=== PATIENT | male | born 1995 | race Caucasian/White ===

== ENCOUNTER 2016-06-28 03:32 | Emergency (ER) | payer OTHER ==
[2016-06-28 04:07] LABS: MEAN CORPUSCULAR HGB CONC 34.6 g/dl (32.0-36.5); MEAN CORPUSCULAR VOLUME 92.3 fl (80.0-96.0)
[2016-06-28 04:37] LABS: ALBUMIN 4.9 GM/DL (3.2-5.2); ALBUMIN/GLOBULIN RATIO 1.53 (1.00-1.93); ALKALINE PHOSPHATASE 84 U/L (45-117); ALT/SGPT 71 U/L (12-78); ANION GAP 10 MEQ/L (8-16); AST/SGOT 32 U/L (15-37); BILIRUBIN,DIRECT 0.2 MG/DL (0.0-0.2); BILIRUBIN,TOTAL 0.7 MG/DL (0.2-1.0); BLOOD UREA NITROGEN 12 MG/DL (7-18); CALCIUM LEVEL 9.5 MG/DL (8.5-10.1); CARBON DIOXIDE LEVEL 29 MEQ/L (21-32); CHLORIDE LEVEL 106 MEQ/L (98-107); CREATININE FOR GFR 1.04 MG/DL (0.70-1.30); GLOMERULAR FILTRATION RATE > 60.0 (>60); GLUCOSE, FASTING 84 MG/DL (70-105); POTASSIUM SERUM 4.3 MEQ/L (3.5-5.1); SODIUM LEVEL 145 MEQ/L (136-145); TOTAL PROTEIN 8.1 GM/DL (6.4-8.2)
[2016-06-28 04:56] LABS: AMPHETAMINES LEVEL URINE NEGATIVE (NEGATIVE); BENZODIAZEPINES URINE NEGATIVE (NEGATIVE); COCAINE METABOLITE URINE NEGATIVE (NEGATIVE); CONTROL LINE INT CTR LINE PRESENT; METHADONE URINE NEGATIVE (NEGATIVE); OPIATES URINE NEGATIVE (NEGATIVE); TRICYCLIC ANTIDEPRESS URINE NEGATIVE (NEGATIVE)
[2016-06-28] MEDS ORDERED: DERMABOND TOPICAL SKIN ADHESIVE As Ordered ONE (05:21)
--- NOTE | 2016-06-28 19:21 | ECGEPIP ---
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
--- NOTE | 2016-06-28 21:37 | EDDOCDS ---
Physician Documentation [facility] Name: Willian Laureano Age: 21 yrs Sex: Male : 1995 Arrival Date: 06/28/2016 Time: 03:32 Bed OBSERVATION Private MD: Padmini Alcazar [facility] Disposition: 06/28/16 18:05 Transfer ordered to [facility]. Diagnosis is Suicidal ideations - with laceration of left wrist. - Reason for transfer: Higher level of care. - Accepting physician is dr grimm. - Condition is Stable. - Problem is new. - Symptoms are unchanged. Historical: - Allergies: No known drug Allergies; - Home Meds: 1. none - PMHx: none; - PSHx: none; - Social history: Smoking status: Patient states former smoker of tobacco. Patient uses alcohol only on a social basis. admits to "couple of beers" a day. Patient/guardian denies using street drugs, No barriers to communication noted, The patient speaks fluent [place], Speaks appropriately for age. - Family history: Not pertinent. - : The pt / caregiver states he / she is not on anticoagulants. Home medication list is obtained from the patient. - Exposure Risk Screening:: None identified. Vital Signs: 06/28 03:41 BP 129 / 64; Pulse 82; Resp 18; Temp 98.1(T); Pulse Ox 99% on R/A; Pain 0/10; cp1 06:33 BP 119 / 91; Pulse 72; Resp 16; Temp 97.9(T); Pulse Ox 98% ; Pain 0/10; cp1 16:44 BP 140 / 57; Pulse 80; Resp 18; Temp 97.0(T); Pulse Ox 98% on R/A; Pain 0/10; dsf MDM: 03:36 Consult PFS/PSA/Agronomy Research Manager ordered. jun 03:36 Consult PFS/PSA/Agronomy Research Manager: Patient's case requires discussion with on-call nadia Psychiatrist ordered. 03:36 PSA/PFS to call Nursing Kiln Car Repairer, to enter patient data on [place] Safe Act if patient nadia involuntarily admitted or transferred for SI or HI ordered. 03:36 Confirm accurate psychiatric medication list and times of last dosage ordered. jun 03:36 Detain Pt Until Medically/PFS Cleared ordered. jun 03:37 Acetaminophen Level Ordered. EDMS 03:37 Basic Metabolic Profile Ordered. EDMS 03:37 Complete Blood Count Ordered. EDMS 03:37 Drug Eval Toxicology ED Only Ordered. EDMS 03:37 Ethyl Alcohol (ethanol) Ordered. EDMS 03:37 Liver Profile Ordered. EDMS 03:37 Salicylate Level Ordered. EDMS 03:37 Thyroid Stimulating Hormone Ordered. EDMS 04:28 Dermabond to bedside ordered. mm11 04:28 Complete Blood Count Reviewed. mm11 05:09 Financial registration complete. hs2 05:16 REGULAR DIET PLASTIC ALVAREZ+DIET ordered. EDMS 05:27 Acetaminophen Level Reviewed. mm11 05:27 Ethyl Alcohol (ethanol) Reviewed. mm11 05:27 Salicylate Level Reviewed. mm11 05:27 Thyroid Stimulating Hormone Reviewed. mm11 05:27 Basic Metabolic Profile Reviewed. mm11 05:27 Drug Eval Toxicology ED Only Reviewed. mm11 05:27 Liver Profile Reviewed. mm11 05:49 [place] was [place] into [employer] and attached to record. hs2 07:24 Consult PFS/PSA/Agronomy Research Manager complete. rb 07:25 Consult PFS/PSA/Agronomy Research Manager: Patient's case requires discussion with on-call rb Psychiatrist complete. 07:25 PSA/PFS to call Nursing Kiln Car Repairer, to enter patient data [place] Safe [place] if patient rb involuntarily admitted or transferred for SI or HI complete. 08:21 ED course: pt signed out to [place]. pending psych disposition. pt with no complaints. mlg. ml 08:33 ED course: pt signed out to [place]. pending psych disposition. pt with no complaints. mlg. ml 11:18 REGULAR DIET PLASTIC ALVAREZ+DIET ordered. EDMS 16:38 ECG WITH READING ER PHYS+CARDIAG ordered. EDMS 16:42 REGULAR DIET PLASTIC ALVAREZ+DIET ordered. EDMS 17:10 ED course: pt resting comfortably. pending psych disposition. pt with no complaints. ml mlg. 17:12 ED course: pt with no complaints. pending psych disposition. pt with no complaints. mlg.ml 17:52 [facility] Legal paperwork was scanned into [employer] and attached to record. rb 18:06 [facility] Legal paperwork was scanned into [employer] and attached to record. rb 21:35 T-Sheet-- Draft Copy was scanned into [employer] and attached to record. klr Signatures: Dispatcher [employer] EDMS Benedicto Wolfe MD MD ml Mary Mcrae, RN RN kmg1 Juju Zepeda, RN RN nadia Gonzalez, Tri, PSA PSA Delroy Sirvastava, DO mm11 Maryjane KamaraRN RN Yareli Galvan,JOB BOSS JOB BOSS ka4 Irina Carrasco, Reg Reg hs2 Aide Garza klcase The chart was reviewed and I authenticate all verbal orders and agree with the evaluation and treatment provided.Attachments: 05:49 [facility] Payment Agreement hs2 21:35 T-Sheet-- Draft Copy klr MTDD
--- NOTE | 2016-06-28 21:37 | EDDOCDS ---
Nurse's Notes [facility] Name: Ave Benton Age: 21 yrs Sex: Male : 1995 Arrival Date: 06/28/2016 Time: 03:32 Bed OBSERVATION Private MD: Padmini Alcazar [facility] Diagnosis: Suicidal ideations-with laceration of left wrist Presentation: 06/28 03:38 Presenting complaint: EMS states: patient brought in after cutting wrists with a pair kmg1 of scissors. Mental Health Triage Level: Level 2: The patient displays active suicidal ideations. Mental Health Triage Level: Level 2: The patient displays active suicidal ideations. Suicide/Homicide risk assessment- The patient admits to and/or has been reported to be having suicidal ideations. 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 Transition of care: patient was not received from another setting of care. 03:38 Acuity: TRAE Level 3 kmg1 03:38 Method Of Arrival: Ambulance km 03:51 Presenting complaint: Patient states: Has been seeing a therapist for a couple of kmg1 weeks. They have brought some personal issues up in discussions. Patient reports no particula reason for attempt other than reflecting on those issues. Patient called the suicide hotline after cutting wrists. He reports that after the wounds stopped bleeding he realized he was not going to so he went to bed and was awakened by the arrival of his NCO and then ambulance and police. Adult Sepsis Screening: The patient does not have new or worsening altered mentation. Patient's respiratory rate is less than 22. Systolic blood pressure is greater than 100. Patient has a qSOFA score of 0- Negative Sepsis Screen. Triage Assessment: 03:55 General: Appears in no apparent distress, comfortable, Behavior is appropriate for age, kmg1 cooperative, flat. Pain: Denies pain. The patient is triaged at the bedside. See Assessment in Nurses Notes section of ED record. Neurological: Level of Consciousness is awake, alert. EENT: No deficits noted. Cardiovascular: No deficits noted. Respiratory: No deficits noted. Airway is patent Respiratory effort is even, unlabored, Respiratory pattern is regular, symmetrical. GI: Abdomen is flat, non- distended. Derm: Skin is pink, warm & dry. Musculoskeletal: No deficits noted. Injury Description: Laceration sustained to palmar aspect of right wrist and palmar aspect of left wrist is Left wrist with 2 linear lacerations approx 3 inches long. 4 shallow abrasions on right wrist. 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 dsf Historical: - Allergies: No known drug Allergies; - Home Meds: 1. none - PMHx: none; - PSHx: none; - Social history: Smoking status: Patient states former smoker of tobacco. Patient uses alcohol only on a social basis. admits to "couple of beers" a day. Patient/guardian denies using street drugs, No barriers to communication noted, The patient speaks fluent Sammarinese, Speaks appropriately for age. - Family history: Not pertinent. - : The pt / caregiver states he / she is not on anticoagulants. Home medication list is obtained from the patient. - Exposure Risk Screening:: None identified. Screenin:14 Screening information is obtained from the patient. Fall risk: No risks identified. dsf Assistance ADL's: requires no assistance with activities of daily living. Abuse/DV Screen: The patient / caregiver reports he/she is: not in a situation that causes fear, pain or injury. Nutritional screening: No deficits noted. Advance Directives: Currently, there is no health care proxy. home support is adequate. Assessment: 04:10 General: Appears in no apparent distress, comfortable, Behavior is appropriate for age, cp1 cooperative. Pain: Denies pain. Respiratory: Respiratory effort is even, unlabored, Respiratory pattern is regular, symmetrical. 06:33 General: Appears in no apparent distress, to be sleeping. Behavior is appropriate for cp1 age, cooperative. Pain: Denies pain. Respiratory: No deficits noted. Respiratory effort is even, unlabored, Respiratory pattern is regular, symmetrical. 08:20 General: Appears in no apparent distress, comfortable, Behavior is cooperative. jc4 General: Breakfast tray has been delivered. Pt has consumed 100% of meal. Declines any additional offering of fluids or foods. Security observation continuing. Pain: Denies pain. Neurological: Level of Consciousness is awake, alert, Oriented to person, place, time. Respiratory: Airway is patent Respiratory effort is even, unlabored, Respiratory pattern is regular, symmetrical. Derm: Skin is pink, warm & dry. Injury Description: Laceration sustained to palmar aspect of right wrist and palmar aspect of left wrist is Dermabond in place to left inner wrist laceration. 09:20 Adult Sepsis Screening: The patient does not have new or worsening altered mentation. dsf Patient's respiratory rate is less than 22. Systolic blood pressure is greater than 100. Patient has a qSOFA score of 0- Negative Sepsis Screen. General: Appears in no apparent distress, to be sleeping. Respiratory: Airway is patent Respiratory effort is even, unlabored, Respiratory pattern is regular, symmetrical. Derm: Skin is pink, warm & dry. 10:20 General: Appears in no apparent distress, to be sleeping. Respiratory: Airway is patent dsf Respiratory effort is even, unlabored, Respiratory pattern is regular, symmetrical. Derm: Skin is pink, warm & dry. 11:18 General: Appears in no apparent distress, to be sleeping. Respiratory: Airway is patent dsf Respiratory effort is even, unlabored, Respiratory pattern is regular, symmetrical. Derm: Skin is pink, warm & dry. 12:05 Adult Sepsis Screening: The patient does not have new or worsening altered mentation. dsf Patient's respiratory rate is less than 22. Systolic blood pressure is greater than 100. Patient has a qSOFA score of 0- Negative Sepsis Screen. General: Appears in no apparent distress, comfortable, Behavior is appropriate for age, cooperative. Neurological: Level of Consciousness is awake, alert. Cardiovascular: Capillary refill < 3 seconds. Respiratory: Airway is patent Respiratory effort is even, unlabored, Respiratory pattern is regular, symmetrical. Derm: Skin is pink, warm & dry. 13:17 General: Appears in no apparent distress, comfortable, Behavior is appropriate for age, dsf cooperative. Pain: Denies pain. Neurological: Level of Consciousness is awake, alert, Oriented to person, place, time. Cardiovascular: Capillary refill < 3 seconds Heart tones S1 S2 present. Respiratory: Airway is patent Respiratory effort is even, unlabored, Respiratory pattern is regular, symmetrical, Breath sounds are clear bilaterally. GI: Abdomen is non- distended Bowel sounds present X 4 quads. Abd is soft and non tender X 4 quads. Derm: Skin is pink, warm & dry. 13:17 General: pt ate 100% of lunch tray . dsf 14:19 General: Appears to be sleeping. Respiratory: Airway is patent Respiratory effort is dsf even, unlabored, Respiratory pattern is regular, symmetrical. Derm: Skin is pink, warm & dry. 15:22 General: Appears to be sleeping. Respiratory: Airway is patent Respiratory effort is dsf even, unlabored, Respiratory pattern is regular, symmetrical. Derm: Skin is pink, warm & dry. 16:22 Adult Sepsis Screening: The patient does not have new or worsening altered mentation. dsf Patient's respiratory rate is less than 22. Systolic blood pressure is greater than 100. Patient has a qSOFA score of 0- Negative Sepsis Screen. General: Appears in no apparent distress, comfortable, Behavior is appropriate for age, cooperative. Pain: Denies pain. Neurological: Level of Consciousness is awake, alert, Oriented to person, place, time. Cardiovascular: Capillary refill < 3 seconds. Respiratory: Airway is patent Respiratory effort is even, unlabored, Respiratory pattern is regular, symmetrical. Derm: Skin is pink, warm & dry. 17:22 General: Appears in no apparent distress, reading a book . Neurological: Level of dsf Consciousness is awake, alert. Respiratory: Airway is patent Respiratory effort is even, unlabored, Respiratory pattern is regular, symmetrical. Derm: Skin is pink, warm & dry. 18:08 General: Appears in no apparent distress, Behavior is appropriate for age, cooperative. dsf Pain: Denies pain. Neurological: Level of Consciousness is awake, alert. Cardiovascular: No deficits noted. Respiratory: No deficits noted. GI: No deficits noted. Derm: Skin is pink, warm & dry. 19:25 General: Appears in no apparent distress, comfortable, to be sleeping. Behavior is ka4 appropriate for age, cooperative, quiet. Respiratory: Airway is patent Respiratory effort is even, unlabored, Respiratory pattern is regular, symmetrical. Derm: Skin is pink, warm & dry. 21:04 General: Appears in no apparent distress. Neurological: Level of Consciousness is mgs awake, alert, Oriented to. Cardiovascular: Capillary refill < 3 seconds. Respiratory: Airway is patent Respiratory effort is even, unlabored, Respiratory pattern is regular, symmetrical. Mental Health Eval: 06:53 Mental health consult is initiated at 06:30. Status: The patient is a jl dependent. [facility] Behavioral Health: The patient is not an established patient of [facility] Behavioral Health. Referral Information: Evaluation referral is generated by [facility], accompanied by MPs units who arrested him under 9.41. The patient was referred for evaluation because he phoned a suicide hotline & was then found in his barracks room with several self-inflicted wrist lacerations, one of which required repair in ED. Subjective: The patients chief complaint is "I tried to commit suicide, basically". Delusions are denied. Patient's mood is depressed. Hallucinations are denied. Patient is a fairly vague historian, although admits that raciel's events were with suicidal intent. He reports feeling depressed "For a while now", although also admits to a h/o depression for much of his life. He denies having any obvious stressors, or triggers that precipitated raciel's attempt. 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 He denies having any deployment hx or impending deployments. He admits to drinking "A couple of beers", however denies any habitual or problematic drinking. He reports being sent to recently by his leadership for some "anger problems". While clearly stating that he cut himself with suicidal intent earlier, he denies active suicidal plan or intentions now. His chain of command that is here acting as his escort reports that patient has been seeing [facility] for about a month & was sent there due to patient being under significant stress for some time at work. This was described as, "Lots of work and not much rest". Mental Health history: depression, suicide attempt by cutting, at age 15 Mental Health Admissions: None. Current Outpatient Mental Health Services: Therapist / Agency: [facility]. Current living environment is The patient [facility]. Patient presents to Emergency Department with the following symptoms within the past 2 weeks: anger, depressed mood, poor impulse control, relational problem, suicidal ideation with attempt/gesture by cutting. Substance abuse: Pt denies. Mental status exam: Patients appearance is appropriate, Patient's behavior is cooperative, Speech is unspontaneous Affect is restricted. Mood is depressed. Hallucinations are denied. Appetite is normal. Memory is good. Energy level is normal. Content of thought is normal. Thought process is intact. Cognitive level is oriented to person, place, time and situation Patient's insight is poor. Judgement is poor. Rapport with interviewer is good. Suicidal Ideation is denied. Homicidal ideation is denied. Disposition: Medically cleared for disposition by Delroy Holden DO. 07:12 [facility] Admission Criteria: The patient has had a suicide attempt in the recent past. The jl patient requires continuous observation and/or control to protect self, others or property. The patient's care requires a multi-modal treatment plan under close supervision and coordination due to the complexity and severity of the patient's symptoms. Legal Status: Patient's legal status will be [facility] admission: . [place] Safe Act: [place] Safe Act is applicable to this patient. The patient poses a risk to self or other and the Nursing Community Service Aide has been notified. He/She will enter the patient's data. DSM-V Differential Diagnosis: Unspecified Depressive Disorder (F32.9). Vital Signs: 03:41 BP 129 / 64; Pulse 82; Resp 18; Temp 98.1(T); Pulse Ox 99% on R/A; Pain 0/10; cp1 06:33 BP 119 / 91; Pulse 72; Resp 16; Temp 97.9(T); Pulse Ox 98% ; Pain 0/10; cp1 16:44 BP 140 / 57; Pulse 80; Resp 18; Temp 97.0(T); Pulse Ox 98% on R/A; Pain 0/10; dsf Vitals: 03:41 Log In Time N/A - ambulance arrival. cp1 ED Course: 03:33 Patient visited by Vijay Nicholas, Sports Specialist. ml3 03:33 Patient moved to [facility] ml3 03:34 [facility] is Private Physician. ml3 03:34 Patient moved to [facility] ml3 03:35 Patient visited by Joseph Moses. tr 03:39 Triage Initiated kmg1 03:46 Delroy Holden DO is Attending Physician. mm11 03:46 Patient visited by Delroy Holden DO. mm11 03:48 Patient visited by Joseph Moses. tr 03:58 Patient visited by Joseph Moses. tr 03:58 Patient visited by Mary Mcrae RN. kmg1 03:59 Acetaminophen Level Sent. cp1 03:59 Basic Metabolic Profile Sent. cp1 03:59 Complete Blood Count Sent. cp1 03:59 Ethyl Alcohol (ethanol) Sent. cp1 03:59 Liver Profile Sent. cp1 03:59 Salicylate Level Sent. cp1 03:59 Thyroid Stimulating Hormone Sent. cp1 04:16 Patient visited by Madonna Rosenberg LPN. cp1 04:16 Drug Eval Toxicology ED Only Sent. cp1 04:18 Patient visited by Joseph Moses. tr 04:26 Patient visited by Delroy Holden DO. mm11 04:32 Patient visited by Joseph Moses. tr 04:44 Patient visited by Joseph Moses. tr 04:58 Patient visited by Joseph Moses. tr 05:12 Patient visited by Joseph Moses. tr 05:40 Patient visited by Madonna Rosenberg LPN. cp1 05:46 Patient visited by Joseph Moses. tr 05:49 [facility] Payment Agreement was scanned into [employer] and attached to record. hs2 05:57 Patient name changed from Ave\\S\\\\S\\Benton\\S\\ to Ave\\S\\ \\S\\Benton. EDMS 06:00 Patient visited by Joseph Moses. tr 06:14 Patient visited by Joseph Moses. tr 06:28 Patient visited by Joseph Moses. tr 06:45 Patient visited by Joseph Moses. tr 06:45 Patient visited by Azeem Bourne PSA. jl 06:58 Patient visited by Joseph Moses. tr 07:15 Patient visited by Zeb Harvey. dpm 07:29 Patient visited by Zeb Harvey. dpm 07:42 Patient visited by Zeb Harvey. dpm 07:58 Patient visited by Zeb Harvey. dpm 08:22 Patient moved to OBSERVATION mm11 08:25 Patient visited by Zeb Harvey. dpm 08:33 Attending Physician role handed off by Delroy Holden DO ml 08:33 Benedicto Wolfe MD is Attending Physician. ml 08:40 Patient visited by Zeb Harvey. dpm 08:56 Patient visited by Zeb Harvey. dpm 09:20 Patient visited by Maryjane Kamara RN. dsf 09:26 Patient visited by Zeb Harvey. dpm 09:47 Patient visited by Zeb Harvey. dpm 10:03 Patient visited by Zeb Harvey. dpm 10:25 Patient visited by Maryjane Kamara RN. dsf 11:11 Patient visited by Zeb Harvey. dpm 11:18 Patient visited by Maryjane Kamara RN. dsf 11:30 Patient visited by Zeb Harvey. dpm 11:45 Patient visited by Zeb Harvey. dpm 11:48 role handed off by Azeem Bourne, PSA ac 12:06 Patient visited by Maryjane Kamara RN. dsf 12:32 Patient visited by Zeb Harvey. dpm 12:58 Patient visited by Zeb Harvey. dpm 13:17 Patient visited by Maryjane Kamara RN. dsf 13:43 Patient visited by Zeb Harvey. dpm 14:01 Patient visited by Zeb Harvey. dpm 14:20 Patient visited by Maryjane Kamara RN. dsf 14:43 Patient visited by Zeb Harvey. dpm 14:59 Patient visited by Zeb Harvey. dpm 15:00 EKG done. (by ED staff). Reviewed by Benedicto Wolfe MD. ct3 15:15 Patient visited by Zeb Harvey. dpm 15:22 Patient visited by Maryjane Kamara RN. dsf 16:00 Patient visited by Zeb Harvey. dpm 16:19 Patient visited by Zeb Harvey. dpm 16:41 Patient visited by Maryjane Kamara RN. dsf 17:00 Patient visited by Shana Akhtar PCA. ct3 17:07 Patient visited by Zeb Harvey. dpm 17:22 Patient visited by Zeb Harvey. dpm 17:29 Patient visited by Maryjane Kamara RN. dsf 17:52 [facility] Legal paperwork was scanned into [employer] and attached to record. rb 18:06 [facility] Legal paperwork was scanned into [employer] and attached to record. rb 18:14 The patient / caregiver is instructed regarding the plan of care and ED course. dsf 18:14 No IV's were initiated during this patient's visit. No procedures done that require dsf assistance. 18:15 Patient visited by Maryjane Kamara RN. dsf 18:22 Patient visited by Zeb Harvey. dpm 19:26 Patient visited by Yareli Mccallum LPN. ka4 19:33 Psych Safety Check: Location: Psych Room. Visual Assessment: Cooperative. tmm1 19:49 EKG-ADULT Returned. EDMS 19:51 Psych Safety Check: Location: Psych Room. Visual Assessment: Cooperative. tmm1 19:52 Patient visited by Clotilde Chance PCA. tmm1 20:37 Psych Safety Check: Location: Psych Room. Visual Assessment: Cooperative. tmm1 21:03 Delroy Gibbs,RN is Primary Nurse. mgs 21:04 Patient visited by Delroy Gibbs RN. mgs 21:29 Patient visited by Yareli Mccallum LPN. ka4 21:35 T-Sheet-- Draft Copy was scanned into [employer] and attached to record. klr Attachments: 17:52 [facility] Legal paperwork rb 18:06 [facility] Legal paperwork rb Intake: 13:18 PO: 360.00ml (Milk); Total: 360.00ml. dsf Order Results: Lab Order: Acetaminophen Level; SPEC'M 06/28/16 03:56 Test: ACETAMINOPHEN LEVEL; Value: < 2.0; Range: 10.0-30.0; Abnormal: Below low normal; Units: UG/ML; Status: F Lab Order: Basic Metabolic Profile; SPEC'M 06/28/16 03:56 Test: GLUCOSE, FASTING; Value: 84; Range: 70-105; Units: MG/DL; Status: F Test: BLOOD UREA NITROGEN; Value: 12; Range: 7-18; Units: MG/DL; Status: F Test: CREATININE FOR GFR; Value: 1.04; Range: 0.70-1.30; Units: MG/DL; Status: F Test: GLOMERULAR FILTRATION RATE; Value: > 60.0; Range: >60; Status: F Test: SODIUM LEVEL; Value: 145; Range: 136-145; Units: MEQ/L; Status: F Test: POTASSIUM SERUM; Value: 4.3; Range: 3.5-5.1; Units: MEQ/L; Status: F Test: CHLORIDE LEVEL; Value: 106; Range: 98-107; Units: MEQ/L; Status: F Test: CARBON DIOXIDE LEVEL; Value: 29; Range: 21-32; Units: MEQ/L; Status: F Test: ANION GAP; Value: 10; Range: 8-16; Units: MEQ/L; Status: F Test: CALCIUM LEVEL; Value: 9.5; Range: 8.5-10.1; Units: MG/DL; Status: F Test Note: ; Units are mL/min/1.73 m2 Chronic Kidney Disease Staging per NKF: Stage I & II GFR >=60 Normal to Mildly Decreased Stage III GFR 30-59 Moderately Decreased Stage IV GFR 15-29 Severely Decreased Stage V GFR <15 Very Little GFR Left ESRD GFR <15 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 Lab Order: Complete Blood Count; SPEC'M 06/28/16 03:56 Test: WHITE BLOOD COUNT; Value: 6.0; Range: 4.0-10.0; Units: K/mm3; Status: F Test: RED BLOOD COUNT; Value: 5.31; Range: 4.30-6.10; Units: M/mm3; Status: F Test: HEMOGLOBIN; Value: 17.0; Range: 14.0-18.0; Units: g/dl; Status: F Test: HEMATOCRIT; Value: 49.0; Range: 42.0-52.0; Units: %; Status: F Test: MEAN CORPUSCULAR VOLUME; Value: 92.3; Range: 80.0-96.0; Units: fl; Status: F Test: MEAN CORPUSCULAR HEMOGLOBIN; Value: 32.0; Range: 27.0-33.0; Units: pg; Status: F Test: MEAN CORPUSCULAR HGB CONC; Value: 34.6; Range: 32.0-36.5; Units: g/dl; Status: F Test: RED CELL DISTRIBUTION WIDTH; Value: 13.0; Range: 11.5-14.5; Units: %; Status: F Test: PLATELET COUNT, AUTOMATED; Value: 297; Range: 150-450; Units: k/mm3; Status: F Lab Order: Drug Eval Toxicology ED Only; SPEC'M 06/28/16 04:13 Test: AMPHETAMINES LEVEL URINE; Value: NEGATIVE; Range: NEGATIVE; Status: F Test: BARBITURATES URINE; Value: NEGATIVE; Range: NEGATIVE; Status: F Test: BENZODIAZEPINES URINE; Value: NEGATIVE; Range: NEGATIVE; Status: F Test: CANNABINOIDS URINE; Value: NEGATIVE; Range: NEGATIVE; Status: F Test: COCAINE METABOLITE URINE; Value: NEGATIVE; Range: NEGATIVE; Status: F Test: METHADONE URINE; Value: NEGATIVE; Range: NEGATIVE; Status: F Test: OPIATES URINE; Value: NEGATIVE; Range: NEGATIVE; Status: F Test: TRICYCLIC ANTIDEPRESS URINE; Value: NEGATIVE; Range: NEGATIVE; Status: F Test Note: ; ALL PRESUMPTIVE POSITIVE FINDINGS ARE UNCONFIRMED NORMAL VALUES THRESHOLD IN NG/ML AMPHETAMINES 1000 METHAMPHETAMINES 1000 BARBITURATES 300 BENZODIAZEPINES 300 CANNABINOIDS (THC) 50 COCAINE METABOLITE 300 METHADONE 300 OPIATES 300 PHENCYCLIDINE 25 TRICYCLIC ANTIDEPRESSANTS 1000 RESULTS ARE FOR MEDICAL PURPOSES ONLY. ALL URINE SPECIMENS WILL BE SAVED FOR 3 DAYS. IF CONFIRMATION OF A PRESUMPTIVE POSTIVE SCREEN RESULT IS DESIRED, CALL CHEMISTRY ([phone]) AND REQUEST URINE TO BE SENT TO REFERENCE LAB. FOR A LIST OF CLOSELY RELATED COMPOUNDS PLEASE CALL THE LAB. Lab Order: Ethyl Alcohol (ethanol); SPEC'M 06/28/16 03:56 Test: ETHYL ALCOHOL (ETHANOL); Value: 0.126; Range: 0.000-0.010; Abnormal: Above high normal; Units: %; Status: F Lab Order: Liver Profile; SPEC'M 06/28/16 03:56 Test: AST/SGOT; Value: 32; Range: 15-37; Units: U/L; Status: F Test: ALT/SGPT; Value: 71; Range: 12-78; Units: U/L; Status: F Test: ALKALINE PHOSPHATASE; Value: 84; Range: 45-117; Units: U/L; Status: F Test: BILIRUBIN,TOTAL; Value: 0.7; Range: 0.2-1.0; Units: MG/DL; Status: F Test: BILIRUBIN,DIRECT; Value: 0.2; Range: 0.0-0.2; Units: MG/DL; Status: F Test: TOTAL PROTEIN; Value: 8.1; Range: 6.4-8.2; Units: GM/DL; Status: F Test: ALBUMIN; Value: 4.9; Range: 3.2-5.2; Units: GM/DL; Status: F Test: ALBUMIN/GLOBULIN RATIO; Value: 1.53; Range: 1.00-1.93; Status: F Lab Order: Salicylate Level; SPEC'M 06/28/16 03:56 Test: SALICYLATE LEVEL; Value: < 1.7; Range: 5.0-30.0; Abnormal: Below low normal; Units: MG/DL; Status: F Lab Order: Thyroid Stimulating Hormone; SPEC'M 06/28/16 03:56 Test: THYROID STIMULATING HORMONE; Value: 4.000; Range: 0.358-3.740; Abnormal: Above high normal; Units: uIU/ML; Status: F Radiology Order: EKG-ADULT Test: EKG-ADULT REASON FOR EXAMINATION: request of transfer facility; Stationary ECG Study; [facility] - ED; ; Test Date: 2016-06-28; Pat Name: AVE BENTON Department:; Room: -; 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 18:13 Admission hand-off: Report called to Srinath Mccabe RN. dsf 18:14 No special radiology studies were completed. dsf 18:14 Discharge Assessment: patient administered narcotics - no. dsf 21:29 The following High Risk Discharge criteria are identified: None. Transferred by EMS [facility] ambulance. Condition: good Condition: stable. Property given to EMS transport crew. 21:35 Patient left the ED. [facility] Signatures: Dispatcher [employer] EDMS Benedicto Wolfe MD MD ml Garrison, Kelly, RN RN kmg1 Tri Gonzalez, PSA PSA Alex De León, PSA PSA Azeem Breen, PSA PSA Joseph Jackson Mary-Elizabeth, Sports Specialist Unit ml3 Delroy Holden, DO DO mm11 Madonna Rosenberg,JOINER HELPER JOINER HELPER cp1 Danisha Gao, TIKA RN jc4 Shana Akhtar, SAILING OFFICER SAILING OFFICER ct3 Maryjane Kamara,RN RN dsf Zeb Harvey dpm Meron, Clotilde, SAILING OFFICER SAILING OFFICER tmm1 Yareli Mccallum,JOINER HELPER JOINER HELPER ka4 Delroy Gibbs RN RN s Irina Carrasco, Reg Reg hs2 Aide Garza MTDD
--- NOTE | 2016-06-30 22:36 | EDDOCDS ---
Nurse's Notes [facility] Name: Ave Benton Age: 21 yrs Sex: Male : 1995 Arrival Date: 06/28/2016 Time: 03:32 Bed OBSERVATION Private MD: Padmini Alcazar [place] Diagnosis: Suicidal ideations-with laceration of left wrist Presentation: 06/28 03:38 Presenting complaint: EMS states: patient brought in after cutting wrists with a pair kmg1 of scissors. Mental Health Triage Level: Level 2: The patient displays active suicidal ideations. Mental Health Triage Level: Level 2: The patient displays active suicidal ideations. Suicide/Homicide risk assessment- The patient admits to and/or has been reported to be having suicidal ideations. 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 Transition of care: patient was not received from another setting of care. 03:38 Acuity: TRAE Level 3 kmg1 03:38 Method Of Arrival: Ambulance km 03:51 Presenting complaint: Patient states: Has been seeing a therapist for a couple of kmg1 weeks. They have brought some personal issues up in discussions. Patient reports no particula reason for attempt other than reflecting on those issues. Patient called the suicide hotline after cutting wrists. He reports that after the wounds stopped bleeding he realized he was not going to so he went to bed and was awakened by the arrival of his NCO and then ambulance and police. Adult Sepsis Screening: The patient does not have new or worsening altered mentation. Patient's respiratory rate is less than 22. Systolic blood pressure is greater than 100. Patient has a qSOFA score of 0- Negative Sepsis Screen. Triage Assessment: 03:55 General: Appears in no apparent distress, comfortable, Behavior is appropriate for age, kmg1 cooperative, flat. Pain: Denies pain. The patient is triaged at the bedside. See Assessment in Nurses Notes section of ED record. Neurological: Level of Consciousness is awake, alert. EENT: No deficits noted. Cardiovascular: No deficits noted. Respiratory: No deficits noted. Airway is patent Respiratory effort is even, unlabored, Respiratory pattern is regular, symmetrical. GI: Abdomen is flat, non- distended. Derm: Skin is pink, warm & dry. Musculoskeletal: No deficits noted. Injury Description: Laceration sustained to palmar aspect of right wrist and palmar aspect of left wrist is Left wrist with 2 linear lacerations approx 3 inches long. 4 shallow abrasions on right wrist. 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 dsf Historical: - Allergies: No known drug Allergies; - Home Meds: 1. none - PMHx: none; - PSHx: none; - Social history: Smoking status: Patient states former smoker of tobacco. Patient uses alcohol only on a social basis. admits to "couple of beers" a day. Patient/guardian denies using street drugs, No barriers to communication noted, The patient speaks fluent [place], Speaks appropriately for age. - Family history: Not pertinent. - : The pt / caregiver states he / she is not on anticoagulants. Home medication list is obtained from the patient. - Exposure Risk Screening:: None identified. Screenin:14 Screening information is obtained from the patient. Fall risk: No risks identified. dsf Assistance ADL's: requires no assistance with activities of daily living. Abuse/DV Screen: The patient / caregiver reports he/she is: not in a situation that causes fear, pain or injury. Nutritional screening: No deficits noted. Advance Directives: Currently, there is no health care proxy. home support is adequate. Assessment: 04:10 General: Appears in no apparent distress, comfortable, Behavior is appropriate for age, cp1 cooperative. Pain: Denies pain. Respiratory: Respiratory effort is even, unlabored, Respiratory pattern is regular, symmetrical. 06:33 General: Appears in no apparent distress, to be sleeping. Behavior is appropriate for cp1 age, cooperative. Pain: Denies pain. Respiratory: No deficits noted. Respiratory effort is even, unlabored, Respiratory pattern is regular, symmetrical. 08:20 General: Appears in no apparent distress, comfortable, Behavior is cooperative. jc4 General: Breakfast tray has been delivered. Pt has consumed 100% of meal. Declines any additional offering of fluids or foods. Security observation continuing. Pain: Denies pain. Neurological: Level of Consciousness is awake, alert, Oriented to person, place, time. Respiratory: Airway is patent Respiratory effort is even, unlabored, Respiratory pattern is regular, symmetrical. Derm: Skin is pink, warm & dry. Injury Description: Laceration sustained to palmar aspect of right wrist and palmar aspect of left wrist is Dermabond in place to left inner wrist laceration. 09:20 Adult Sepsis Screening: The patient does not have new or worsening altered mentation. dsf Patient's respiratory rate is less than 22. Systolic blood pressure is greater than 100. Patient has a qSOFA score of 0- Negative Sepsis Screen. General: Appears in no apparent distress, to be sleeping. Respiratory: Airway is patent Respiratory effort is even, unlabored, Respiratory pattern is regular, symmetrical. Derm: Skin is pink, warm & dry. 10:20 General: Appears in no apparent distress, to be sleeping. Respiratory: Airway is patent dsf Respiratory effort is even, unlabored, Respiratory pattern is regular, symmetrical. Derm: Skin is pink, warm & dry. 11:18 General: Appears in no apparent distress, to be sleeping. Respiratory: Airway is patent dsf Respiratory effort is even, unlabored, Respiratory pattern is regular, symmetrical. Derm: Skin is pink, warm & dry. 12:05 Adult Sepsis Screening: The patient does not have new or worsening altered mentation. dsf Patient's respiratory rate is less than 22. Systolic blood pressure is greater than 100. Patient has a qSOFA score of 0- Negative Sepsis Screen. General: Appears in no apparent distress, comfortable, Behavior is appropriate for age, cooperative. Neurological: Level of Consciousness is awake, alert. Cardiovascular: Capillary refill < 3 seconds. Respiratory: Airway is patent Respiratory effort is even, unlabored, Respiratory pattern is regular, symmetrical. Derm: Skin is pink, warm & dry. 13:17 General: Appears in no apparent distress, comfortable, Behavior is appropriate for age, dsf cooperative. Pain: Denies pain. Neurological: Level of Consciousness is awake, alert, Oriented to person, place, time. Cardiovascular: Capillary refill < 3 seconds Heart tones S1 S2 present. Respiratory: Airway is patent Respiratory effort is even, unlabored, Respiratory pattern is regular, symmetrical, Breath sounds are clear bilaterally. GI: Abdomen is non- distended Bowel sounds present X 4 quads. Abd is soft and non tender X 4 quads. Derm: Skin is pink, warm & dry. 13:17 General: pt ate 100% of lunch tray . dsf 14:19 General: Appears to be sleeping. Respiratory: Airway is patent Respiratory effort is dsf even, unlabored, Respiratory pattern is regular, symmetrical. Derm: Skin is pink, warm & dry. 15:22 General: Appears to be sleeping. Respiratory: Airway is patent Respiratory effort is dsf even, unlabored, Respiratory pattern is regular, symmetrical. Derm: Skin is pink, warm & dry. 16:22 Adult Sepsis Screening: The patient does not have new or worsening altered mentation. dsf Patient's respiratory rate is less than 22. Systolic blood pressure is greater than 100. Patient has a qSOFA score of 0- Negative Sepsis Screen. General: Appears in no apparent distress, comfortable, Behavior is appropriate for age, cooperative. Pain: Denies pain. Neurological: Level of Consciousness is awake, alert, Oriented to person, place, time. Cardiovascular: Capillary refill < 3 seconds. Respiratory: Airway is patent Respiratory effort is even, unlabored, Respiratory pattern is regular, symmetrical. Derm: Skin is pink, warm & dry. 17:22 General: Appears in no apparent distress, reading a book . Neurological: Level of dsf Consciousness is awake, alert. Respiratory: Airway is patent Respiratory effort is even, unlabored, Respiratory pattern is regular, symmetrical. Derm: Skin is pink, warm & dry. 18:08 General: Appears in no apparent distress, Behavior is appropriate for age, cooperative. dsf Pain: Denies pain. Neurological: Level of Consciousness is awake, alert. Cardiovascular: No deficits noted. Respiratory: No deficits noted. GI: No deficits noted. Derm: Skin is pink, warm & dry. 19:25 General: Appears in no apparent distress, comfortable, to be sleeping. Behavior is ka4 appropriate for age, cooperative, quiet. Respiratory: Airway is patent Respiratory effort is even, unlabored, Respiratory pattern is regular, symmetrical. Derm: Skin is pink, warm & dry. 21:04 General: Appears in no apparent distress. Neurological: Level of Consciousness is mgs awake, alert, Oriented to. Cardiovascular: Capillary refill < 3 seconds. Respiratory: Airway is patent Respiratory effort is even, unlabored, Respiratory pattern is regular, symmetrical. Mental Health Eval: 06:53 Mental health consult is initiated at 06:30. Status: The patient is a jl dependent. [facility] Behavioral Health: The patient is not an established patient of [facility] Behavioral Health. Referral Information: Evaluation referral is generated by [facility], accompanied by MPs units who arrested him under 9.41. The patient was referred for evaluation because he phoned a suicide hotline & was then found in his barracks room with several self-inflicted wrist lacerations, one of which required repair in ED. Subjective: The patients chief complaint is "I tried to commit suicide, basically". Delusions are denied. Patient's mood is depressed. Hallucinations are denied. Patient is a fairly vague historian, although admits that raciel's events were with suicidal intent. He reports feeling depressed "For a while now", although also admits to a h/o depression for much of his life. He denies having any obvious stressors, or triggers that precipitated raciel's attempt. 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 He denies having any deployment hx or impending deployments. He admits to drinking "A couple of beers", however denies any habitual or problematic drinking. He reports being sent to recently by his leadership for some "anger problems". While clearly stating that he cut himself with suicidal intent earlier, he denies active suicidal plan or intentions now. His chain of command that is here acting as his escort reports that patient has been seeing [facility] for about a month & was sent there due to patient being under significant stress for some time at work. This was described as, "Lots of work and not much rest". Mental Health history: depression, suicide attempt by cutting, at age 15 Mental Health Admissions: None. Current Outpatient Mental Health Services: Therapist / Agency: [facility]. Current living environment is The patient currently lives in a [facility]. Patient presents to Emergency Department with the following symptoms within the past 2 weeks: anger, depressed mood, poor impulse control, relational problem, suicidal ideation with attempt/gesture by cutting. Substance abuse: Pt denies. Mental status exam: Patients appearance is appropriate, Patient's behavior is cooperative, Speech is unspontaneous Affect is restricted. Mood is depressed. Hallucinations are denied. Appetite is normal. Memory is good. Energy level is normal. Content of thought is normal. Thought process is intact. Cognitive level is oriented to person, place, time and situation Patient's insight is poor. Judgement is poor. Rapport with interviewer is good. Suicidal Ideation is denied. Homicidal ideation is denied. Disposition: Medically cleared for disposition by Delroy Holden DO. 07:12 [facility] Admission Criteria: The patient has had a suicide attempt in the recent past. The jl patient requires continuous observation and/or control to protect self, others or property. The patient's care requires a multi-modal treatment plan under close supervision and coordination due to the complexity and severity of the patient's symptoms. Legal Status: Patient's legal status will be [facility] admission: . [place] Safe Act: [place] Safe Act is applicable to this patient. The patient poses a risk to self or other and the Nursing Science And Operations Officer has been notified. He/She will enter the patient's data. DSM-V Differential Diagnosis: Unspecified Depressive Disorder (F32.9). Vital Signs: 03:41 BP 129 / 64; Pulse 82; Resp 18; Temp 98.1(T); Pulse Ox 99% on R/A; Pain 0/10; cp1 06:33 BP 119 / 91; Pulse 72; Resp 16; Temp 97.9(T); Pulse Ox 98% ; Pain 0/10; cp1 16:44 BP 140 / 57; Pulse 80; Resp 18; Temp 97.0(T); Pulse Ox 98% on R/A; Pain 0/10; dsf Vitals: 03:41 Log In Time N/A - ambulance arrival. cp1 ED Course: 03:33 Patient visited by Vijay Nicholas, Wireless Architect. ml3 03:33 Patient moved to [facility] ml3 03:34 [facility] is Private Physician. ml3 03:34 Patient moved to [facility] ml3 03:35 Patient visited by Joseph Moses. tr 03:39 Triage Initiated kmg1 03:46 Delroy Holden DO is Attending Physician. mm11 03:46 Patient visited by Delroy Holden DO. mm11 03:48 Patient visited by Joseph Moses. tr 03:58 Patient visited by Joseph Moses. tr 03:58 Patient visited by Mary Mcrae RN. kmg1 03:59 Acetaminophen Level Sent. cp1 03:59 Basic Metabolic Profile Sent. cp1 03:59 Complete Blood Count Sent. cp1 03:59 Ethyl Alcohol (ethanol) Sent. cp1 03:59 Liver Profile Sent. cp1 03:59 Salicylate Level Sent. cp1 03:59 Thyroid Stimulating Hormone Sent. cp1 04:16 Patient visited by Madonna Rosenberg LPN. cp1 04:16 Drug Eval Toxicology ED Only Sent. cp1 04:18 Patient visited by Joseph Moses. tr 04:26 Patient visited by Delroy Holden DO. mm11 04:32 Patient visited by Joseph Moses. tr 04:44 Patient visited by Joseph Moses. tr 04:58 Patient visited by Joseph Moses. tr 05:12 Patient visited by Joseph Moses. tr 05:40 Patient visited by Madonna Rosenberg LPN. cp1 05:46 Patient visited by Joseph Moses. tr 05:49 [facility] Payment Agreement was scanned into [employer] and attached to record. hs2 05:57 Patient name changed from Ave\\S\\\\S\\Benton\\S\\ to Ave\\S\\ \\S\\Benton. EDMS 06:00 Patient visited by Joseph Moses. tr 06:14 Patient visited by Joseph Moses. tr 06:28 Patient visited by Joseph Moses. tr 06:45 Patient visited by Joseph Moses. tr 06:45 Patient visited by Azeem Bourne PSA. jl 06:58 Patient visited by Joseph Moses. tr 07:15 Patient visited by Zeb Harvey. dpm 07:29 Patient visited by Zeb Harvey. dpm 07:42 Patient visited by Zeb Harvey. dpm 07:58 Patient visited by Zeb Harvey. dpm 08:22 Patient moved to OBSERVATION mm11 08:25 Patient visited by Zeb Harvey. dpm 08:33 Attending Physician role handed off by Delroy Holden DO ml 08:33 Benedicto Wolfe MD is Attending Physician. ml 08:40 Patient visited by Zeb Harvey. dpm 08:56 Patient visited by Zeb Harvey. dpm 09:20 Patient visited by Maryjane Kamara RN. dsf 09:26 Patient visited by Zeb Harvey. dpm 09:47 Patient visited by Zeb Harvey. dpm 10:03 Patient visited by Zeb Harvey. dpm 10:25 Patient visited by Maryjane Kamara RN. dsf 11:11 Patient visited by Zeb Harvey. dpm 11:18 Patient visited by Maryjane Kamara RN. dsf 11:30 Patient visited by Zeb Harvey. dpm 11:45 Patient visited by Zeb Harvey. dpm 11:48 role handed off by Azeem Bourne, PSA ac 12:06 Patient visited by Maryjane Kamara RN. dsf 12:32 Patient visited by Zeb Harvey. dpm 12:58 Patient visited by Zeb Harvey. dpm 13:17 Patient visited by Maryjane Kamara RN. dsf 13:43 Patient visited by Zeb Harvey. dpm 14:01 Patient visited by Zeb Harvey. dpm 14:20 Patient visited by Maryjane Kamara RN. dsf 14:43 Patient visited by Zeb Harvey. dpm 14:59 Patient visited by Zeb Harvey. dpm 15:00 EKG done. (by ED staff). Reviewed by Benedicto Wolfe MD. ct3 15:15 Patient visited by Zeb Harvey. dpm 15:22 Patient visited by Maryjane Kamara RN. dsf 16:00 Patient visited by Zeb Harvey. dpm 16:19 Patient visited by Zeb Harvey. dpm 16:41 Patient visited by Maryjane Kamara RN. dsf 17:00 Patient visited by Shana kAhtar PCA. ct3 17:07 Patient visited by Zeb Harvey. dpm 17:22 Patient visited by Zeb Harvey. dpm 17:29 Patient visited by Maryjane Kamara RN. dsf 17:52 [facility] Legal paperwork was scanned into [employer] and attached to record. rb 18:06 [facility] Legal paperwork was scanned into [employer] and attached to record. rb 18:14 The patient / caregiver is instructed regarding the plan of care and ED course. dsf 18:14 No IV's were initiated during this patient's visit. No procedures done that require dsf assistance. 18:15 Patient visited by Maryjane Kamara RN. dsf 18:22 Patient visited by Zeb Harvey. dpm 19:26 Patient visited by Yareli Mccallum LPN. ka4 19:33 Psych Safety Check: Location: Psych Room. Visual Assessment: Cooperative. tmm1 19:49 EKG-ADULT Returned. EDMS 19:51 Psych Safety Check: Location: Psych Room. Visual Assessment: Cooperative. tmm1 19:52 Patient visited by Clotilde Chance PCA. tmm1 20:37 Psych Safety Check: Location: Psych Room. Visual Assessment: Cooperative. tmm1 21:03 Delroy Gibbs,RN is Primary Nurse. mgs 21:04 Patient visited by Delroy Gibbs RN. mgs 21:29 Patient visited by Yareli Mccallum LPN. ka4 21:35 T-Sheet-- Draft Copy was scanned into [employer] and attached to record. klr 06/29 10:51 ECG/EKG was scanned into [employer] and attached to record. gb Attachments: 17:52 [facility] Legal paperwork rb 18:06 [facility] Legal paperwork rb Intake: 06/28 13:18 PO: 360.00ml (Milk); Total: 360.00ml. dsf Order Results: Lab Order: Acetaminophen Level; SPEC'M 06/28/16 03:56 Test: ACETAMINOPHEN LEVEL; Value: < 2.0; Range: 10.0-30.0; Abnormal: Below low normal; Units: UG/ML; Status: F Lab Order: Basic Metabolic Profile; SPEC'M 06/28/16 03:56 Test: GLUCOSE, FASTING; Value: 84; Range: 70-105; Units: MG/DL; Status: F Test: BLOOD UREA NITROGEN; Value: 12; Range: 7-18; Units: MG/DL; Status: F Test: CREATININE FOR GFR; Value: 1.04; Range: 0.70-1.30; Units: MG/DL; Status: F Test: GLOMERULAR FILTRATION RATE; Value: > 60.0; Range: >60; Status: F Test: SODIUM LEVEL; Value: 145; Range: 136-145; Units: MEQ/L; Status: F Test: POTASSIUM SERUM; Value: 4.3; Range: 3.5-5.1; Units: MEQ/L; Status: F Test: CHLORIDE LEVEL; Value: 106; Range: 98-107; Units: MEQ/L; Status: F Test: CARBON DIOXIDE LEVEL; Value: 29; Range: 21-32; Units: MEQ/L; Status: F Test: ANION GAP; Value: 10; Range: 8-16; Units: MEQ/L; Status: F Test: CALCIUM LEVEL; Value: 9.5; Range: 8.5-10.1; Units: MG/DL; Status: F Test Note: ; Units are mL/min/1.73 m2 Chronic Kidney Disease Staging per NKF: Stage I & II GFR >=60 Normal to Mildly Decreased Stage III GFR 30-59 Moderately Decreased Stage IV GFR 15-29 Severely Decreased Stage V GFR <15 Very Little GFR Left ESRD GFR <15 on POOL MANAGER Lab Order: Complete Blood Count; SPEC'M 06/28/16 03:56 Test: WHITE BLOOD COUNT; Value: 6.0; Range: 4.0-10.0; Units: K/mm3; Status: F Test: RED BLOOD COUNT; Value: 5.31; Range: 4.30-6.10; Units: M/mm3; Status: F Test: HEMOGLOBIN; Value: 17.0; Range: 14.0-18.0; Units: g/dl; Status: F Test: HEMATOCRIT; Value: 49.0; Range: 42.0-52.0; Units: %; Status: F Test: MEAN CORPUSCULAR VOLUME; Value: 92.3; Range: 80.0-96.0; Units: fl; Status: F Test: MEAN CORPUSCULAR HEMOGLOBIN; Value: 32.0; Range: 27.0-33.0; Units: pg; Status: F Test: MEAN CORPUSCULAR HGB CONC; Value: 34.6; Range: 32.0-36.5; Units: g/dl; Status: F Test: RED CELL DISTRIBUTION WIDTH; Value: 13.0; Range: 11.5-14.5; Units: %; Status: F Test: PLATELET COUNT, AUTOMATED; Value: 297; Range: 150-450; Units: k/mm3; Status: F Lab Order: Drug Eval Toxicology ED Only; SPEC'06/28/16 04:13 Test: AMPHETAMINES LEVEL URINE; Value: NEGATIVE; Range: NEGATIVE; Status: F Test: BARBITURATES URINE; Value: NEGATIVE; Range: NEGATIVE; Status: F Test: BENZODIAZEPINES URINE; Value: NEGATIVE; Range: NEGATIVE; Status: F Test: CANNABINOIDS URINE; Value: NEGATIVE; Range: NEGATIVE; Status: F Test: COCAINE METABOLITE URINE; Value: NEGATIVE; Range: NEGATIVE; Status: F Test: METHADONE URINE; Value: NEGATIVE; Range: NEGATIVE; Status: F Test: OPIATES URINE; Value: NEGATIVE; Range: NEGATIVE; Status: F Test: TRICYCLIC ANTIDEPRESS URINE; Value: NEGATIVE; Range: NEGATIVE; Status: F Test Note: ; ALL PRESUMPTIVE POSITIVE FINDINGS ARE UNCONFIRMED NORMAL VALUES THRESHOLD IN NG/ML AMPHETAMINES 1000 METHAMPHETAMINES 1000 BARBITURATES 300 BENZODIAZEPINES 300 CANNABINOIDS (THC) 50 COCAINE METABOLITE 300 METHADONE 300 OPIATES 300 PHENCYCLIDINE 25 TRICYCLIC ANTIDEPRESSANTS 1000 RESULTS ARE FOR MEDICAL PURPOSES ONLY. ALL URINE SPECIMENS WILL BE SAVED FOR 3 DAYS. IF CONFIRMATION OF A PRESUMPTIVE POSTIVE SCREEN RESULT IS DESIRED, CALL CHEMISTRY ([phone]) AND REQUEST URINE TO BE SENT TO REFERENCE LAB. FOR A LIST OF CLOSELY RELATED COMPOUNDS PLEASE CALL THE LAB. Lab Order: Ethyl Alcohol (ethanol); SPEC'M 06/28/16 03:56 Test: ETHYL ALCOHOL (ETHANOL); Value: 0.126; Range: 0.000-0.010; Abnormal: Above high normal; Units: %; Status: F Lab Order: Liver Profile; SPEC'M 06/28/16 03:56 Test: AST/SGOT; Value: 32; Range: 15-37; Units: U/L; Status: F Test: ALT/SGPT; Value: 71; Range: 12-78; Units: U/L; Status: F Test: ALKALINE PHOSPHATASE; Value: 84; Range: 45-117; Units: U/L; Status: F Test: BILIRUBIN,TOTAL; Value: 0.7; Range: 0.2-1.0; Units: MG/DL; Status: F Test: BILIRUBIN,DIRECT; Value: 0.2; Range: 0.0-0.2; Units: MG/DL; Status: F Test: TOTAL PROTEIN; Value: 8.1; Range: 6.4-8.2; Units: GM/DL; Status: F Test: ALBUMIN; Value: 4.9; Range: 3.2-5.2; Units: GM/DL; Status: F Test: ALBUMIN/GLOBULIN RATIO; Value: 1.53; Range: 1.00-1.93; Status: F Lab Order: Salicylate Level; SPEC'M 06/28/16 03:56 Test: SALICYLATE LEVEL; Value: < 1.7; Range: 5.0-30.0; Abnormal: Below low normal; Units: MG/DL; Status: F Lab Order: Thyroid Stimulating Hormone; SPEC'M 06/28/16 03:56 Test: THYROID STIMULATING HORMONE; Value: 4.000; Range: 0.358-3.740; Abnormal: Above high normal; Units: uIU/ML; Status: F Radiology Order: EKG-ADULT Test: EKG-ADULT REASON FOR EXAMINATION: request of transfer facility; Stationary ECG Study; [facility] - ED; ; Test Date: 2016-06-28; Pat Name: AVE BENTON Department:; Room: -; 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 18:13 Admission hand-off: Report called to Srinath Mccabe RN. dsf 18:14 No special radiology studies were completed. dsf 18:14 Discharge Assessment: patient administered narcotics - no. dsf 21:29 The following High Risk Discharge criteria are identified: None. Transferred by EMS [facility] ambulance. Condition: good Condition: stable. Property given to EMS transport crew. 21:35 Patient left the ED. [facility] Signatures: Dispatcher [employer] EDMS Benedicto Wolfe MD MD ml Garrison, Kelly, RN RN kmg1 Tri Gonzalez, PSA PSA rb Alex Murrieta, PSA PSA Azeem Breen, PSA PSA jl Berta Rossi, Reg Reg gb Aurelia, Joseph tr Vijay Nicholas, Wireless Architect Unit ml3 Delroy Holden DO DO mm11 Madonna Rosenberg,INTERNAL CONTROLS CONSULTANT INTERNAL CONTROLS CONSULTANT cp1 Danisha Gao, RN RN jc4 Shana Akhtar, FISH HATCHERY WORKER FISH HATCHERY WORKER ct3 Maryjane Kamara,RN RN dsZeb Hancock dpm McLbimal, Clotilde, FISH HATCHERY WORKER FISH HATCHERY WORKER tmm1 Yareli Mccallum,INTERNAL CONTROLS CONSULTANT INTERNAL CONTROLS CONSULTANT ka4 Delroy Gibbs,RN RN mgs Irina Carrasco, Reg Reg hs2 Aide Garza Chart Complete MTDD
--- NOTE | 2016-06-30 22:36 | EDDOCDS ---
Physician Documentation [facility] Name: Willian Laureano Age: 21 yrs Sex: Male : 1995 Arrival Date: 06/28/2016 Time: 03:32 Bed OBSERVATION Private MD: Padmini Alcazar [facility] Disposition: 06/28/16 18:05 Transfer ordered to [facility]. Diagnosis is Suicidal ideations - with laceration of left wrist. - Reason for transfer: Higher level of care. - Accepting physician is dr grimm. - Condition is Stable. - Problem is new. - Symptoms are unchanged. Historical: - Allergies: No known drug Allergies; - Home Meds: 1. none - PMHx: none; - PSHx: none; - Social history: Smoking status: Patient states former smoker of tobacco. Patient uses alcohol only on a social basis. admits to "couple of beers" a day. Patient/guardian denies using street drugs, No barriers to communication noted, The patient speaks fluent Maltese, Speaks appropriately for age. - Family history: Not pertinent. - : The pt / caregiver states he / she is not on anticoagulants. Home medication list is obtained from the patient. - Exposure Risk Screening:: None identified. Vital Signs: 06/28 03:41 BP 129 / 64; Pulse 82; Resp 18; Temp 98.1(T); Pulse Ox 99% on R/A; Pain 0/10; cp1 06:33 BP 119 / 91; Pulse 72; Resp 16; Temp 97.9(T); Pulse Ox 98% ; Pain 0/10; cp1 16:44 BP 140 / 57; Pulse 80; Resp 18; Temp 97.0(T); Pulse Ox 98% on R/A; Pain 0/10; dsf MDM: 03:36 Consult PFS/PSA/Track Coach ordered. jun 03:36 Consult PFS/PSA/Track Coach: Patient's case requires discussion with on-call nadia Psychiatrist ordered. 03:36 PSA/PFS to call Nursing Director Ambulatory, to enter patient data on [place] Safe [place] if patient nadia involuntarily admitted or transferred for SI or HI ordered. 03:36 Confirm accurate psychiatric medication list and times of last dosage ordered. jun 03:36 Detain Pt Until Medically/PFS Cleared ordered. jun 03:37 Acetaminophen Level Ordered. EDMS 03:37 Basic Metabolic Profile Ordered. EDMS 03:37 Complete Blood Count Ordered. EDMS 03:37 Drug Eval Toxicology ED Only Ordered. EDMS 03:37 Ethyl Alcohol (ethanol) Ordered. EDMS 03:37 Liver Profile Ordered. EDMS 03:37 Salicylate Level Ordered. EDMS 03:37 Thyroid Stimulating Hormone Ordered. EDMS 04:28 Dermabond to bedside ordered. mm11 04:28 Complete Blood Count Reviewed. mm11 05:09 Financial registration complete. hs2 05:16 REGULAR DIET PLASTIC ALVAREZ+DIET ordered. EDMS 05:27 Acetaminophen Level Reviewed. mm11 05:27 Ethyl Alcohol (ethanol) Reviewed. mm11 05:27 Salicylate Level Reviewed. mm11 05:27 Thyroid Stimulating Hormone Reviewed. mm11 05:27 Basic Metabolic Profile Reviewed. mm11 05:27 Drug Eval Toxicology ED Only Reviewed. mm11 05:27 Liver Profile Reviewed. mm11 05:49 [facility] Payment Agreement was scanned into zhouwu and attached to record. hs2 07:24 Consult PFS/PSA/Track Coach complete. rb 07:25 Consult PFS/PSA/Track Coach: Patient's case requires discussion with on-call rb Psychiatrist complete. 07:25 PSA/PFS to call Nursing Director Ambulatory, to enter patient data [place] if patient rb involuntarily admitted or transferred for SI or HI complete. 08:21 ED course: pt signed out to tx. pending psych disposition. pt with no complaints. mlg. ml 08:33 ED course: pt signed out to tx. pending psych disposition. pt with no complaints. mlg. ml 11:18 REGULAR DIET PLASTIC ALVAREZ+DIET ordered. EDMS 16:38 ECG WITH READING ER PHYS+CARDIAG ordered. EDMS 16:42 REGULAR DIET PLASTIC ALVAREZ+DIET ordered. EDMS 17:10 ED course: pt resting comfortably. pending psych disposition. pt with no complaints. ml mlg. 17:12 ED course: pt with no complaints. pending psych disposition. pt with no complaints. mlg.ml 17:52 [facility] paperwork was scanned into zhouwu and attached to record. rb 18:06 [facility] Legal paperwork was scanned into zhouwu and attached to record. rb 21:35 T-Sheet-- Draft Copy was scanned into zhouwu and attached to record. klr 06/29 10:51 ECG/EKG was scanned into MEDHOST and attached to record. gb Signatures: Dispatcher Med[employer] EDMS Benedicto Wolfe MD MD ml Garrison, Kelly, RN RN kmg1 Juju Zepeda RN RN nadia Gonzalez, Tri, PSA PSA rb Berta Rossi, Reg Reg gb Delroy Holden, DO DO mm11 Maryjane Kamara RN RN dsf Yareli Mccallum,NUMEROLOGIST NUMEROLOGIST ka4 Irina Carrasco, Reg Reg hs2 Aide Garza klr The chart was reviewed and I authenticate all verbal orders and agree with the evaluation and treatment provided.Attachments: 06/28 05:49 [facility] Payment Agreement hs2 21:35 T-Sheet-- Draft Copy klr 06/29 10:51 ECG/EKG gb Chart Complete MTDD
--- NOTE | 2016-06-30 22:36 | EDDOCDS ---
Physician Documentation [facility] Name: Willian Laureano Age: 21 yrs Sex: Male : 1995 Arrival Date: 06/28/2016 Time: 03:32 Bed OBSERVATION Private MD: Padmini Alcazar [facility] Disposition: 06/28/16 18:[address] [facility]. Diagnosis is Suicidal ideations - with laceration of left wrist. - Reason for transfer: Higher level of care. - Accepting physician is dr grimm. - Condition is Stable. - Problem is new. - Symptoms are unchanged. Historical: - Allergies: No known drug Allergies; - Home Meds: 1. none - PMHx: none; - PSHx: none; - Social history: Smoking status: Patient states former smoker of tobacco. Patient uses alcohol only on a social basis. admits to "couple of beers" a day. Patient/guardian denies using street drugs, No barriers to communication noted, The patient speaks fluent Greenlandic, Speaks appropriately for age. - Family history: Not pertinent. - : The pt / caregiver states he / she is not on anticoagulants. Home medication list is obtained from the patient. - Exposure Risk Screening:: None identified. Vital Signs: 06/28 03:41 BP 129 / 64; Pulse 82; Resp 18; Temp 98.1(T); Pulse Ox 99% on R/A; Pain 0/10; cp1 06:33 BP 119 / 91; Pulse 72; Resp 16; Temp 97.9(T); Pulse Ox 98% ; Pain 0/10; cp1 16:44 BP 140 / 57; Pulse 80; Resp 18; Temp 97.0(T); Pulse Ox 98% on R/A; Pain 0/10; dsf MDM: 03:36 Consult PFS/PSA/Aerospace Physiological Technician ordered. jun 03:36 Consult PFS/PSA/Aerospace Physiological Technician: Patient's case requires discussion with on-call nadia Psychiatrist ordered. 03:36 PSA/PFS to call Nursing Wildlife Refuge Specialist, to enter [place] data [place] if patient nadia involuntarily admitted or transferred for SI or HI ordered. 03:36 Confirm accurate psychiatric medication list and times of last dosage ordered. jun 03:36 Detain Pt Until Medically/PFS Cleared ordered. jun 03:37 Acetaminophen Level Ordered. EDMS 03:37 Basic Metabolic Profile Ordered. EDMS 03:37 Complete Blood Count Ordered. EDMS 03:37 Drug Eval Toxicology ED Only Ordered. EDMS 03:37 Ethyl Alcohol (ethanol) Ordered. EDMS 03:37 Liver Profile Ordered. EDMS 03:37 Salicylate Level Ordered. EDMS 03:37 Thyroid Stimulating Hormone Ordered. EDMS 04:28 Dermabond to bedside ordered. mm11 04:28 Complete Blood Count Reviewed. mm11 05:09 Financial registration complete. hs2 05:16 REGULAR DIET PLASTIC ALVAREZ+DIET ordered. EDMS 05:27 Acetaminophen Level Reviewed. mm11 05:27 Ethyl Alcohol (ethanol) Reviewed. mm11 05:27 Salicylate Level Reviewed. mm11 05:27 Thyroid Stimulating Hormone Reviewed. mm11 05:27 Basic Metabolic Profile Reviewed. mm11 05:27 Drug Eval Toxicology ED Only Reviewed. mm11 05:27 Liver Profile Reviewed. mm11 05:49 [facility] Payment Agreement was scanned into Rosterbot and attached to record. hs2 07:24 Consult PFS/PSA/Aerospace Physiological Technician complete. rb 07:25 Consult PFS/PSA/Aerospace Physiological Technician: Patient's case requires discussion with on-call rb Psychiatrist complete. 07:25 PSA/PFS to call Nursing Wildlife Refuge Specialist, to enter [place] data [place] if patient rb involuntarily admitted or transferred for SI or HI complete. 08:21 ED course: pt signed out to nv. pending psych disposition. pt with no complaints. mlg. ml 08:33 ED course: pt signed out to nv. pending psych disposition. pt with no complaints. mlg. ml 11:18 REGULAR DIET PLASTIC ALVAREZ+DIET ordered. EDMS 16:38 ECG WITH READING ER PHYS+CARDIAG ordered. EDMS 16:42 REGULAR DIET PLASTIC ALVAREZ+DIET ordered. EDMS 17:10 ED course: pt resting comfortably. pending psych disposition. pt with no complaints. ml mlg. 17:12 ED course: pt with no complaints. pending psych disposition. pt with no complaints. mlg.ml 17:52 [facility] Legal paperwork was scanned into Roster[employer] and attached to record. rb 18:06 [facility] Legal paperwork was scanned into Roster[employer] and attached to record. rb 21:35 T-Sheet-- Draft Copy was scanned into Rosterbot and attached to record. klr 06/29 10:51 ECG/EKG was scanned into MEDHOST and attached to record. gb Signatures: Dispatcher Med[employer] EDMS Benedicto Wolfe MD MD ml Garrison, Kelly, RN RN kmg1 Juju Zepeda RN RN nadia Gonzalez, Tri, PSA PSA rb Berta Rossi, Reg Reg gb Delroy Holden, DO DO mm11 Maryjane Kamara RN RN dsf Yareli Mccallum,WAREHOUSE DRIVER WAREHOUSE DRIVER ka4 Irina Carrasco, Reg Reg hs2 Aide Garza klr The chart was reviewed and I authenticate all verbal orders and agree with the evaluation and treatment provided.Attachments: 06/28 05:49 [facility] Payment Agreement hs2 21:35 T-Sheet-- Draft Copy klr 06/29 10:51 ECG/EKG gb Chart Complete MTDD
== END 2016-06-28 18:05 ==
LOC: M ED 03:32
DX: R45.851 Suicidal ideations (principal); S61.512A Laceration without foreign body of left wrist, initial encounter; X78.1XXA Intentional self-harm by knife, initial encounter; Y92.89 Other specified places as the place of occurrence of the external cause; Y93.89 Activity, other specified; Y99.8 Other external cause status; Z87.891 Personal history of nicotine dependence
CPT/HCPCS: 36415; 80048; 80076; 80306; 84443; 85027; 93005; 99285; G0480